=== PATIENT | female | born 1940 | race Caucasian/White ===

== ENCOUNTER 2018-10-30 06:00 | Day surgery (SDC) | payer MEDICARE, OTHER ==
[2018-10-30] MEDS ORDERED: Bupivacaine 0.5% 30 ML SDV ONE (06:46)
[2018-10-30] MEDS ORDERED: fentaNYL 250 MCG/5 ML SDV ONE (07:10)
[2018-10-30] MEDS ORDERED: Ondansetron 4 MG/2 ML SDV ONE (07:11)
[2018-10-30] MEDS ORDERED: Glycopyrrolate 0.2 MG/ML 5 ML MDV ONE (07:11)
[2018-10-30] MEDS ORDERED: Rocuronium 50 MG/5 ML Vial ONE (07:11)
[2018-10-30] MEDS ORDERED: Dexamethasone 4 MG/ML SDV ONE (07:11)
[2018-10-30] MEDS ORDERED: Propofol 200 MG/20 ML SDV ONE (07:11)
[2018-10-30] MEDS ORDERED: Succinylcholine 200 MG/10 ML MDV ONE (07:11)
[2018-10-30] MEDS ORDERED: Neostigmine Methylsulfate 1 MG/ML 5 ML Syringe ONE (07:11)
[2018-10-30] MEDS ORDERED: Nozin Nasal Sanitizer NASBOTH ONE (07:15)
[2018-10-30] MEDS ORDERED: ceFAZolin 1 GM in Premix Bag 1 BAG IV ONE (07:30)
[2018-10-30] MEDS ORDERED: Lactated Ringers 1,000 ML IV SCH (07:30)
[2018-10-30] MEDS ORDERED: Naloxone 0.4 MG/ML SDV ONE (08:20)
[2018-10-30] MEDS ORDERED: Acetaminophen/HYDROcodone 325-5 MG Tab PO ONE (09:38)
--- NOTE | 2018-11-08 22:48 | OR ---
DATE OF PROCEDURE: 10/30/2018 PREOPERATIVE DIAGNOSIS: Medial meniscus tear, right knee. POSTOPERATIVE DIAGNOSES: Medial meniscus tear, right knee, complex; chondromalacia, medial femoral condyle and patellofemoral joint. PROCEDURE: Arthroscopy, right knee with partial medial meniscectomy. ANESTHESIA: General. INDICATIONS: Saurav is a 78-year-old female with a history of persistent right knee pain. X- rays reveal minimal degenerative change. MRI and examination are consistent with a degenerative tear of the medial meniscus. She has failed conservative treatment and now presents for arthroscopy of the right knee for partial meniscectomy and debridement. Risks, benefits, and potential complications of the procedure were discussed. DESCRIPTION OF PROCEDURE: After adequate anesthesia was obtained, the patient was placed supine with a tourniquet about the right upper thigh. Right leg was prepped and draped in a sterile fashion. Leg was exsanguinated, and tourniquet inflated to 300 mmHg pressure. Inferior, medial, and lateral portals were established. Scope was introduced and the patellofemoral joint is inspected. This reveals grade 4 changes of the patellofemoral joint with an area approximately 2 cm in width in the main sulcus of the trochlear groove. The patella shows some softening without full-thickness loss. The scope was moved into the medial compartment where a complex tear at the junction of the anterior horn and midbody was present. This was debrided with a shaver allowing further visualization into the joint. A more complex tear of the medial meniscus was present incorporating some degenerative fraying and horizontal cleavage patterns. This was debrided back to a stable margin using combination of punch baskets and pelon. All loose fragments were removed. Medial femoral condyle showed grade 3 changes with significant thinning, but no full-thickness loss. Remaining meniscus was probed and was stable. Intercondylar notch revealed intact ACL and PCL. Lateral meniscus with some very minor fraying of the free edge without tear and minimal degenerative change of the articular surfaces. Medial and lateral gutters were evaluated. No loose bodies were identified. Again, all loose fragments were removed from the knee with a shaver. Knee was drained. Scope was withdrawn. Port sites were closed in a standard fashion. Dressed with Steri-Strips and Xeroform gauze, infiltrated with Marcaine, and a sterile dressing was applied. The patient tolerated the procedure very well. There were no complications, taken from the operating room in stable condition. Yonatan Capellan MD /[id number] MTDD
== END 2018-10-30 10:53 | disposition home or self-care (01) ==
LOC: JP.SDS 06:00
PROVIDERS: ATTEND Specialist
DX: S83.231A Complex tear of medial meniscus, current injury, right knee, initial encounter (principal); M94.261 Chondromalacia, right knee; E78.5 Hyperlipidemia, unspecified; X58.XXXA Exposure to other specified factors, initial encounter; Z79.899 Other long term (current) drug therapy
CPT/HCPCS: 29881; A9270; J0690; J1100; J2310; J2405; J2704; J3010; J3490; J7120; J0330; J2710